=== PATIENT | female | born 1975 | race African-American/Black ===

== ENCOUNTER 2017-01-26 12:55 | Day surgery (SDC) | payer OTHER ==
[~2017-01-26] VITALS: Ht 165.1 cm; Wt 61.9 kg
[2017-01-26 14:16] VITALS: Ht 165.1 cm; Wt 61.9 kg
[2017-01-26] MEDS ORDERED: RANITIDINE PO (14:36)
[2017-01-26] MEDS ORDERED: HYDROXYZINE PO (14:36)
[2017-01-26] MEDS ORDERED: DICYCLOMINE PO (14:36)
[2017-01-26 14:45] VITALS: BP 114/71; PULSE 65; RESP 13
[2017-01-26] MEDS ORDERED: LIDOCAINE 2% (SDV) 5 ML INJ ONE (15:21)
[2017-01-26] MEDS ORDERED: MIDAZOLAM 1 MG/ML 2 ML INJ ONE (15:21)
[2017-01-26] MEDS ORDERED: PROPOFOL 20 ML ONE (15:21)
[2017-01-26 15:55] VITALS: BP 119/72; PULSE 64; RESP 12
--- NOTE | 2017-01-26 16:28 | GILP ---
DATE OF PROCEDURE: 01/26/2017 PROCEDURE: Esophagogastroduodenoscopy with biopsies. PREMEDICATION: Monitored anesthesia care by anesthesiologist. SURGEON: Manuel Mckeon MD INSTRUMENT USED: Olympus panendoscope. TECHNIQUE: After informed consent, with the patient/relatives understanding the procedure, its indic ations, potential risks and complications, including but not limited to: allergic reaction, bleeding , perforation or infection, and after all pertinent questions were answered to the patients satisfac tion, the patient/relatives signed witnessed informed consent. Following this, premedication was ad ministered slowly IV push under careful cardiovascular and respiratory monitoring with pulse oximetr y, automatic blood pressure and groundwater monitoring technician. Once the sedative effect was achieved the patient was place in the left lateral decubitus, the panendoscope was introduced and advanced under visual contr ol. Careful examination of the upper gastrointestinal tract, both on insertion as well as withdrawal of the instrument disclosed the following findings: ESOPHAGUS: The distal esophagus shows erythema, edema and superficial erosion in the mucosa. STOMACH: Upon entrance to the stomach, air was insufflated, the gastric hampton distended normally. There is erythema and edema of the mucosa of a moderate degree. Biopsies were obtained to rule out H. pylori infection. PYLORUS: The pylorus appears patent and within normal limits, with no evidence of gastric outlet ob struction. DUODENUM: The duodenal mucosa was carefully examined in the duodenal bulb as well as the second por tion of the duodenum and appears unremarkable with no evidence of duodenitis, ulcer or neoplasm. The instrument was then withdrawn, the patient tolerated the procedure well and was transfer out of the endoscopy suite awake, and in good condition to continue recovery under observation IMPRESSION: 1. Erosive esophagitis. 2. Gastritis, rule out Helicobacter pylori infection, biopsies obtained. PLAN: The patient will be treated with omeprazole 40 mg daily. Pathology will be reviewed as soon as available. Further recommendation will depend on patient's clinical course as well as review of pathology. Dictated By: MANUEL MCKEON MS/CHRISTINA Conf#: [id number] DID#: [id number] CC: MANUEL MCKEON;*EndCC*
== END 2017-01-26 17:05 | disposition home or self-care (01) ==
LOC: GIL 12:55
PROVIDERS: ATTEND Internal Medicine Gastroenterology
DX: K20.8 Other esophagitis (principal); K29.70 Gastritis, unspecified, without bleeding
CPT/HCPCS: 43239; 84702; 88305; J2250; Z7610